=== PATIENT | female | born 1975 | race Caucasian/White ===

== ENCOUNTER 2020-05-06 10:56 | Outpatient (CLI) | payer OTHER, SELFPAY ==
--- NOTE | ~2020-05-06 | XR_ITS ---
XR abdomen/kub 1V 05/06/2020 11:18 INDICATION: Left ureteral stone TECHNIQUE: KUB COMPARISON: None FINDINGS: Bowel gas pattern is normal. There is no evidence of free air, mass, organomegaly, ascites or obstruction. No abnormal calculi are seen. There are pelvic phleboliths. The bones appear intact . IMPRESSION: 1: No acute abdominal abnormality identified. 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
== END 2020-05-06 10:57 | disposition home or self-care (01) ==
PROVIDERS: PCP Nurse Practitioner Family; Visit Provider Urology
DX: N20.1 Calculus of ureter (principal)
CPT/HCPCS: 74018

== ENCOUNTER 2020-05-08 00:31 | Outpatient (CLI) | payer OTHER, SELFPAY ==
[2020-05-08 19:14] LABS: SARS-CoV-2 RNA PCR Negative
== END 2020-05-08 00:32 | disposition home or self-care (01) ==
LOC: ANHCOVIDDT 00:31
PROVIDERS: PCP Nurse Practitioner Family; Visit Provider Urology
DX: Z01.818 Encounter for other preprocedural examination (principal); Z20.828 Contact with and (suspected) exposure to other viral communicable diseases
CPT/HCPCS: 87635; C9803; U0003

== ENCOUNTER 2020-05-11 01:23 | Day surgery (SDC) | payer OTHER, SELFPAY ==
[2020-05-06 12:58] VITALS: BMI 31.8
[2020-05-11] VITALS (9 sets, daily range): BP systolic 87–148; BP diastolic 54–85; PULSE 60–90; RESP 10–20; TEMP 36.1–36.4; O2SAT 96–100
--- NOTE | ~2020-05-11 | XR_ITS ---
EXAMINATION: XR retrograde pyelo w/stent LT INDICATION: Left ureteral stent insertion TECHNIQUE: Seven intraoperative fluoroscopic images are submitted for review. Total fluoroscopic time was 14.7 seconds. COMPARISON: None available FINDINGS: There is retrograde opacification of a mildly dilated left renal collecting system. A left internal ureteral stent is placed in expected position. IMPRESSION: 1. Left internal ureteral stent in expected position. Please refer to procedure note for full details . 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 Left internal ureteral stent in expected position. Please refer to procedure note for full details.
--- NOTE | 2020-05-11 10:26 | WPDHPUPDATE1 ---
History and Physical Update Update Date/Time: 05/11/20 10:26 History and Physical has been reviewed, including an updated exam of the patient. There are NO changes in the patient's condition. Risks, benefits, and alternatives have been discussed and questions answered. Patient agrees to proceed with procedure.
--- NOTE | 2020-05-11 10:52 | ECG_ITS ---
Measurements Intervals [place] Rate: 77 P: 21 NM: 137 QRS: 1 QRSD: 91 T: 18 QT: 361 QTc: 411 Interpretive Statements SINUS RHYTHM DELAYED PRECORDIAL R/S TRANSITION BORDERLINE T WAVE ABNORMALITY- INFERIOR LEADS BORDERLINE ECG Electronically Signed On 05-11-2020 11:11:04 INSPECTOR WREATH by Barry Espino D.O.
--- NOTE | 2020-05-11 11:12 | WPDANESEPPF ---
Anes - Initial Pre Proc Eval Procedure: Operation Date: 05/11/20 12:30 Proposed Procedures p Cystoscopy, Left Retrograde Pyelogram, Left Ureteroscopy With Stone Extraction,Possible Left Stent Placement - Hugo Kearney MD s Possible Holmium Laser Procedure - Hugo Kearney MD Date/Time: 05/11/20 11:12 Surgeon: Hugo Kearney MD Pre Op Diagnosis: Left Left Ureteral Calculus Patient Data Age: 45 Gender: F Height: 5 ft 4 in Weight: 84 kg Allergies Allergy/AdvReac Type Severity Reaction Status Date / Time No Known Allergies Allergy Verified 05/06/20 12:55 Home Medications Medication Instructions Recorded Confirmed Type acetaminophen [Tylenol Extra 1,000 mg PO Q6H PRN 05/06/20 05/06/20 History Strength] ascorbic acid (vitamin C) [Vitamin 500 mg PO DAILY 05/06/20 05/06/20 History C] atorvastatin 20 mg QAM 05/06/20 05/06/20 History hnmctiufihbt-kictgjsy-yrqfew 1 tablet PO DAILY 05/06/20 05/06/20 History [Centrum Silver] tamsulosin 0.4 mg PO QAM 05/06/20 05/06/20 History Patient hx anesthesia problems: none Family hx anesthesia problems: none PMFSH Past Medical History Medical History (Updated 05/11/20 @ 11:09 by Lavell Ch MD) GERD (gastroesophageal reflux disease) Hyperlipidemia Social History Social History Smoking status: Current every day smoker Tobacco type: cigarettes Second hand tobacco smoke exposure: Yes Additional smoking assessment comments: STATES 1/2PK/DAY/20+YRS Alcohol intake: current Alcohol use details: STATES MAYBE 1 DRINK A MONTH IF THAT Substance use: never Living arrangements: with family Spiritual care concerns: No Anes - Eval Final PreProcedure Day of Procedure 05/11/20 11:12 Patient weight: overweight Heart: regular rate and rhythm Lungs: clear to auscultation Airway: Mallampati scale class II Neurological: alert and oriented Last oral intake: >/= 8 hours ASA classification: II Emergent: no Anesthetic plan: proceed Anesthesia type and monitoring: general LMA and standard monitoring Informed Consent: The patient's anesthetic plan and its attendant risks and benefits were discussed with the patient/family/POA. Questions were solicited and answers provided to the satisfaction of the patient/family/POA.
[2020-05-11] MEDS: LACTATED RINGERS 1,000 ML 30 ML IV CONT (11:15)
--- NOTE | 2020-05-11 12:15 | P.OP_ITS ---
Procedure Note - Detailed Date of procedure: 05/11/20 Pre-op diagnosis: Left Left Ureteral Calculus Post-op diagnosis: same Procedure performed: Cystoscopy, left retrograde pyelogram, left ureteroscopy with stone extraction, left ureteral stent placement 4.8 [place] contour Description of procedure: Patient is taken to the operative suite and correctly identified. Once anesthesia was obtained she was placed in dorsal lithotomy position and prepped and draped usual sterile fashion. Twenty-two [place] scope inserted in the bladder. There are no tumors noted. Left orifice was can with a guidewire. We dilated with an 810 dilator. Rigid ureteral scope was then inserted. It was noted that the dilation fragmented the stone. We retrieve some of the pieces and sent them for analysis. Reinspection revealed no residual stones in the ureter. Pyelogram was then performed confirm placement of the stent. 4.8 [place] contour stent was then placed with the proximal end coiled in the left renal pelvis and the distal in the bladder. Bladder was drained. 2% viscous lidocaine was inserted into the bladder. Patient is taken recovery room stable condition. She will follow up in a week's time for stent removal. Anesthesia: GLMA Surgeon: Hugo Kearney MD Drains: Yes Packing: No Pathology: yes Complications: No immediate complications Condition: stable Disposition: PACU
== END 2020-05-11 14:25 | disposition home or self-care (01) ==
PROVIDERS: PCP Nurse Practitioner Family; Visit Provider Urology
PROC: (CPT 52352; principal; 2020-05-11 12:30)
DX: N20.1 Calculus of ureter (principal); I10 Essential (primary) hypertension; K21.9 Gastro-esophageal reflux disease without esophagitis; F17.210 Nicotine dependence, cigarettes, uncomplicated
CPT/HCPCS: 52332; 52352; 74420; 82365; 88300; 93005; A9270; C1769; C2617; J2250; J2405; J2704; J3010; J7120; Q9966

== ENCOUNTER 2022-01-20 14:27 | Outpatient (CLI) | payer OTHER, SELFPAY ==
--- NOTE | ~2022-01-20 | XR_ITS ---
XR abdomen/kub 1V 01/20/2022 14:45 INDICATION: Renal stones TECHNIQUE: KUB COMPARISON: CT dated 01/20/2022 FINDINGS: Bowel gas pattern is normal. There is no evidence of free air, mass, organomegaly, ascites or obstruction. No abnormal calculi are seen. The bones appear intact. There are pelvic phlebolith s. IMPRESSION: 1: No acute abdominal abnormality identified. Reviewed, dictated and finalized at location B.
--- NOTE | ~2022-01-20 | CT_ITS ---
EXAMINATION: CT abdomen pelvis wo con DATE: 01/20/2022 14:48 INDICATION: Bilateral renal stones, left flank pain TECHNIQUE: Computed tomography (CT) of the abdomen and pelvis was performed without intravenous contr ast. The dose-length product (DLP) was 206.52 mGy-cm. Automated exposure control and iterative recons truction technique were employed. COMPARISON: None FINDINGS: Minimal dependent atelectasis is present in the lung bases. The heart size is normal. The l iver, spleen, pancreas, gallbladder, and adrenal glands are normal. The kidneys are unremarkable. No stones are identified in the kidneys, ureters, or bladder. There is no hydronephrosis or hydroureter. No pathologically enlarged abdominal or pelvic lymph nodes are identified. There is no free intraper itoneal gas or evidence of bowel obstruction. There is mild lumbar spondylosis. IMPRESSION: 1. No urolithiasis identified. Reviewed, dictated and finalized at location A.
== END 2022-01-20 14:28 | disposition home or self-care (01) ==
PROVIDERS: PCP Nurse Practitioner Family; Visit Provider Nurse Practitioner Adult Health
DX: N20.0 Calculus of kidney (principal)
CPT/HCPCS: 74018; 74176